=== PATIENT | female | born 1960 | race Caucasian/White ===

== ENCOUNTER 2021-08-27 17:32 | Emergency (ER) | payer OTHER ==
[~2021-08-27] VITALS: Ht 157.5 cm; Wt 63.6 kg
[~2021-08-27 17:32] MED LIST: ATOR20TA86 PO; CHL25 PO; CHOL200016 PO; FERR-89 PO; FLUO-191 PO; METO25XL PO
[2021-08-27 19:19] LABS: COVID AG,FIA SOURCE NASOPHARYNGEAL
[2021-08-27 19:22] LABS: BASOPHILS % (AUTO) 0.8 % (0.0-2.0); EOSINOPHILS % (AUTO) 1.5 % (1.0-6.0); HEMATOCRIT 38.4 % (36-46); HEMOGLOBIN 13.2 g/dL (12.0-16.0); LYMPHOCYTES # (AUTO) 2.3 K/uL (1.0-4.8); LYMPHOCYTES % (AUTO) 26.3 % (22.0-44.0); MEAN CORPUSCULAR HEMOGLOBIN 31.4 pg (26.0-34.0); MEAN CORPUSCULAR HGB CONC 34.3 G/dL (31.0-37.0); MEAN CORPUSCULAR VOLUME 92 fL (80-100); MONOCYTES # (AUTO) 0.7 K/uL (0.1-1.0); MONOCYTES % (AUTO) 7.8 % (2.0-9.0); NEUTROPHILS # (AUTO) 5.5 K/uL (1.8-7.7); NEUTROPHILS % (AUTO) 63.6 % (40.0-70.0); PLATELET COUNT (AUTO) 297 K/uL (150-450); RED CELL DISTRIBUTION WIDTH 12.7 % (11.5-14.5)
[2021-08-27 20:17] LABS: ANION GAP 7 mmol/L (8-16); CALCIUM, TOTAL 9.9 mg/dL (8.8-10.5); CARBON DIOXIDE 28 mmol/L (22-29); CHLORIDE 104 mmol/L (98-107); CREATININE 0.58 mg/dL (0.60-1.30); GLOMERULAR FILTR. RATE CALC > 60 mL/min (>60); GLUCOSE,RANDOM 105 mg/dL (70-110); SODIUM SERUM 139 mmol/L (136-145); UREA NITROGEN, BLOOD 10 mg/dL (7-18)
[2021-08-27 20:22] LABS: ALANINE AMINOTRANSFERASE 21 U/L (12-78); ALKALINE PHOSPHATASE 89 U/L (46-116); ASPARTATE AMINOTRANSFERASE 18 U/L (15-37); BILIRUBIN,TOTAL 0.5 mg/dL (0.1-1.0); LIPASE 92 U/L (73-393); TOTAL PROTEIN, SERUM 7.9 g/dL (6.4-8.2)
[2021-08-27] MEDS ORDERED: ONDANSETRON HCL 4 MG/2 ML VIAL IVP ONE (21:00)
[2021-08-27] MEDS ORDERED: KETOROLAC TROMETHAMINE 30 MG/ML VIAL IVP ONE (21:00)
[2021-08-27] MEDS ORDERED: SODIUM CHLORIDE 0.9% 1,000 ML IV ONE ×2 (21:00→21:45)
[2021-08-27 21:52] LABS: INFLUENZA TYPE A NEGATIVE FOR TYPE A (NEGATIVE); INFLUENZA TYPE B NEGATIVE FOR TYPE B (NEGATIVE)
[2021-08-28 01:23] VITALS: BP 139/99
== END 2021-08-28 01:32 | disposition home or self-care (01) ==
LOC: EMS 17:33
DX: R10.13 Epigastric pain (principal); R05.9 Cough, unspecified; I10 Essential (primary) hypertension; F12.90 Cannabis use, unspecified, uncomplicated; Z79.899 Other long term (current) drug therapy; Z20.822 Contact with and (suspected) exposure to COVID-19
CPT/HCPCS: 36415; 71045; 74176; 80053; 81002; 83690; 85025; 87426; 87804; 96361; 96374; 96375; 99285; J1885; J2405; J7030

== ENCOUNTER 2022-04-08 17:51 | Emergency (ER) | payer OTHER ==
[~2022-04-08] VITALS: Ht 157.5 cm; Wt 70.5 kg
[~2022-04-08 17:51] MED LIST changes: -CHOL200016 PO; +CHOL200059 PO; -FERR-89 PO; +FERR325T27 PO; +FLUO-177 PO; -FLUO-191 PO
[2022-04-08 19:30] LABS: COVID AG,FIA SOURCE NASOPHARYNGEAL
[2022-04-08] MEDS ORDERED: KETOROLAC TROMETHAMINE 10 MG TABLET PO ONE (19:30)
[2022-04-08] MEDS ORDERED: ACETAMINOPHEN 325 MG TABLET PO ONE (19:30)
[2022-04-08 19:50] LABS: INFLUENZA TYPE A NEGATIVE FOR TYPE A (NEGATIVE); INFLUENZA TYPE B NEGATIVE FOR TYPE B (NEGATIVE)
[2022-04-08] MEDS ORDERED: BENZ-70 PO (20:12)
[2022-04-08] MEDS ORDERED: ALBU8.5H8 IH (20:12)
[2022-04-08 20:28] VITALS: BP 103/70
== END 2022-04-08 21:00 | disposition home or self-care (01) ==
LOC: EMS 18:01
DX: J06.9 Acute upper respiratory infection, unspecified (principal); I10 Essential (primary) hypertension; F12.90 Cannabis use, unspecified, uncomplicated; Z79.899 Other long term (current) drug therapy; Z20.822 Contact with and (suspected) exposure to COVID-19
CPT/HCPCS: 71045; 87804; 99284

== ENCOUNTER 2022-04-19 13:49 | Emergency (ER) | payer OTHER ==
[~2022-04-19] VITALS: Ht 157.5 cm; Wt 74.0 kg
[~2022-04-19 13:49] MED LIST changes: +ALBU8.5H8 IH; +BENZ-70 PO
[2022-04-19] MEDS ORDERED: TRAM50TA4 PO (14:46)
[2022-04-19 15:09] LABS: BASOPHILS % (AUTO) 0.9 % (0.0-2.0); EOSINOPHILS % (AUTO) 4.2 % (1.0-6.0); HEMATOCRIT 38.3 % (36-46); HEMOGLOBIN 12.4 g/dL (12.0-16.0); LYMPHOCYTES # (AUTO) 2.1 K/uL (1.0-4.8); LYMPHOCYTES % (AUTO) 29.7 % (22.0-44.0); MEAN CORPUSCULAR HGB CONC 32.4 G/dL (31.0-37.0); MEAN CORPUSCULAR VOLUME 84 fL (80-100); MONOCYTES # (AUTO) 0.5 K/uL (0.1-1.0); MONOCYTES % (AUTO) 7.4 % (2.0-9.0); NEUTROPHILS % (AUTO) 57.8 % (40.0-70.0); PLATELET COUNT (AUTO) 280 K/uL (150-450); RED BLOOD CELL COUNT(AUTO) 4.59 MIL/uL (4.00-5.20); RED CELL DISTRIBUTION WIDTH 24.6 % (11.5-14.5)
[2022-04-19 15:15] LABS: ANION GAP 11 mmol/L (8-16); CALCIUM, TOTAL 9.6 mg/dL (8.8-10.5); CARBON DIOXIDE 25 mmol/L (22-29); CHLORIDE 103 mmol/L (98-107); CREATININE 0.67 mg/dL (0.60-1.30); GLUCOSE,RANDOM 93 mg/dL (70-110); POTASSIUM 4.1 mmol/L (3.5-5.1); SODIUM SERUM 139 mmol/L (136-145); UREA NITROGEN, BLOOD 19 mg/dL (7-18)
[2022-04-19 15:16] LABS: GLOMERULAR FILTR. RATE CALC > 60 mL/min (>60)
[2022-04-19 15:21] LABS: ALANINE AMINOTRANSFERASE 24 U/L (12-78); ALBUMIN 4.1 g/dL (3.4-5.0); ALKALINE PHOSPHATASE 105 U/L (46-116); ASPARTATE AMINOTRANSFERASE 18 U/L (15-37); BILIRUBIN,TOTAL 0.2 mg/dL (0.1-1.0); LIPASE 101 U/L (73-393)
[2022-04-19] MEDS ORDERED: SERT-439 PO (18:28)
[2022-04-19] MEDS ORDERED: GABA-529 PO (18:28)
[2022-04-19] MEDS ORDERED: METO-408 PO (18:28)
[2022-04-19] MEDS ORDERED: DOCU100C33 PO (18:28)
[2022-04-19] MEDS ORDERED: ONDANSETRON HCL 4 MG TABLET PO ONE (20:00)
[2022-04-19 20:04] VITALS: BP 147/88
[2022-04-19] MEDS ORDERED: ONDA-104 PO (20:08)
== END 2022-04-19 20:32 | disposition home or self-care (01) ==
LOC: EMS 13:49
DX: R11.2 Nausea with vomiting, unspecified (principal); F12.90 Cannabis use, unspecified, uncomplicated; I10 Essential (primary) hypertension
CPT/HCPCS: 99283; 80053; 83690; 85025; 36415; Q0162

== ENCOUNTER 2023-06-02 11:16 | Emergency (ER) | payer OTHER ==
[~2023-06-02] VITALS: Ht 157.5 cm; Wt 75.0 kg
[~2023-06-02 11:16] MED LIST changes: -ATOR20TA86 PO; -BENZ-70 PO; -CHL25 PO; -CHOL200059 PO; +DOCU100C33 PO; -FLUO-177 PO; +GABA-529 PO; +METO-408 PO; -METO25XL PO; +ONDA-104 PO; +SERT-439 PO; +TRAM-559 PO
[2023-06-02 11:19] VITALS: TEMP 98.6
[2023-06-02] MEDS ORDERED: LIDOCAINE 5% TRANSDERMAL PATCH TD ONE (12:15)
[2023-06-02 13:27] VITALS: RESP 18
[2023-06-02] MEDS ORDERED: KETOROLAC TROMETHAMINE 30 MG/ML VIAL IM ONE (13:30)
[2023-06-02 14:02] VITALS: BP 140/87; PULSE 74
[2023-06-02] MEDS ORDERED: IBUP-1492 PO (14:04)
[2023-06-02] MEDS ORDERED: TRAM-559 PO (14:04)
== END 2023-06-02 14:16 | disposition home or self-care (01) ==
LOC: EMS 11:23
DX: M54.50 Low back pain, unspecified (principal); M51.36 Other intervertebral disc degeneration, lumbar region; I10 Essential (primary) hypertension; F12.90 Cannabis use, unspecified, uncomplicated
CPT/HCPCS: 99283; 72100; 96372; J1885